=== PATIENT | male | born 1990 | race Two or more races ===

== ENCOUNTER 2017-10-20 06:35 | Emergency (ER) | payer SELFPAY, OTHER ==
[2017-10-20] MEDS: HYDROcodone/APAP 5/325MG 1 TAB TABLET PO (08:40)
== END 2017-10-20 10:42 | disposition home or self-care (01) ==
LOC: ER 06:35
DX: S49.91XA Unspecified injury of right shoulder and upper arm, initial encounter (principal); F12.10 Cannabis abuse, uncomplicated; Z88.0 Allergy status to penicillin; W18.30XA Fall on same level, unspecified, initial encounter; Y93.61 Activity, american tackle football; Y92.89 Other specified places as the place of occurrence of the external cause; Y99.8 Other external cause status
CPT/HCPCS: 73030; 99284